=== PATIENT | male | born 1990 | race African-American/Black ===

== ENCOUNTER 2017-06-25 11:29 | Inpatient (IN) ==
[2017-06-25 12:02] LABS: URINE CULTURE NEEDED? NO; URINE MICRO REVIEW NEEDED? NO; URINE SOURCE CLEAN CATCH
[2017-06-25 12:02] LABS: MANUAL DIFF NEEDED? NO
[2017-06-25 12:06] LABS: BILIRUBIN URINE NEGATIVE (NEGATIVE); BLOOD URINE NEGATIVE (NEGATIVE); COLOR YELLOW; GLUCOSE URINE NEGATIVE (NEGATIVE); LEUKOCYTES URINE NEGATIVE (NEGATIVE); NITRITE URINE NEGATIVE (NEGATIVE); PROTEIN URINE NEGATIVE (NEGATIVE); SP GRAVITY URINE 1.021; TURBIDITY URINE CLEAR (CLEAR); UR EPITHELIAL CELLS <10 /HPF (<10); URINE BACTERIA NEGATIVE /HPF; URINE RBC <10 /HPF (<10); URINE WBC <10 /HPF (<10); UROBILINOGEN URINE 2 mg/dL (NORMAL)
[2017-06-25 12:06] LABS: BASO% 0.1 % (0.0-0.8); EOS# 0.01 X1000 (0.0-0.7); EOS% 0.1 % (0.0-10.0); HEMATOCRIT 41.5 % (42.0-52.0); HEMOGLOBIN 14.2 g/dL (14.0-18.0); LYMPH# 1.33 X1000 (1.2-3.4); LYMPH% 18.4 % (20.5-51.1); MCH 29.1 PG (27-31); MCHC 34.2 g/dL (33-37); MONO# 0.43 X1000 (0.11-0.59); MPV 10.3 FL (7.4-10.4); NEUT% 75.4 % (42.2-75.2); PLT 249 X1000 (130-400); RBC 4.88 XMIL (4.7-6.1)
[2017-06-25 12:26] LABS: AGAP 15; ALBUMIN 4.8 g/dL (3.5-5.0); ALKALINE PHOSPHATASE 70 U/L (32-122); AMYLASE 51 U/L (20-200); BUN 10 mg/dL (8-22); CHLORIDE 100 mmol/L (98-107); COSMO 275; GOT 18 U/L (10-34); GPT 21 U/L (10-44); LIPASE 20 U/L (13-60); POTASSIUM 4.1 mmol/L (3.5-5.1); SODIUM 138 mmol/L (136-145); TCO2 23 mmol/L (25-35); TOTAL PROTEIN 8.4 g/dL (6.3-8.3)
--- NOTE | 2017-06-25 12:54 | PROVIDER DOCUMENTATION ---
HPI-Abdominal Pain/GI Problem - General Chief Complaint: Abdominal Pain Stated Complaint: abd pain Time Seen by Provider: 06/25/17 12:38 Source: patient Allergies/Adverse Reactions: Patient Allergies Allergy/AdvReac Type Severity Reaction Status Date / Time No Known Allergies Allergy Verified 06/25/17 14:05 Home Medications: Home Medication List Medication Instructions Recorded Confirmed Last Taken Type NK [No Home Medications] 06/25/17 06/25/17 Unknown History - History of Present Illness-ABD Nature of Presenting Problems: 26 yo male presents to the emergency room with a chief complaint of abdominal pain with nausea that started last pm and vomiting started this morning. Reports was seen X 3 months ago for same. Reports a dull ache and states feels like a "bag of rocks in my stomach". Denies fever, diarrhea, dysuria or urine frequency. Abdominal Pain Onset Location: reports: periumbilical Pain Radiation: reports: no radiation Quality of Pain: reports: aching, dull Severity in ED: reports: moderate Onset/Duration: reports: last night Timing: reports: still present Modifying Factors: worse with: movement, vomiting Associated Symptoms: reports: nausea, vomiting Last BM: last night Dark Stools Present?: reports: none noticed Review of Systems - Adult - REVIEW OF SYSTEMS - ADULT Constitutional: reports: chills. denies: fever Gastrointestinal: reports: nausea, vomiting. denies: diarrhea Past History - Adult - PAST MEDICAL HISTORY-ADULT Review of Records: reports: Nursing Assessment Review, Medications Reviewed - PRIOR SURGERIES/PROCEDURES Surgical/Procedure History: reports: reviewed, not pertinent - IMMUNIZATION STATUS Childhood Immunizations: See Nurse Assessment Flu Vaccine: See Nurse Assessment - FAMILY HISTORY Family History: reviewed, not pertinent - SOCIAL HISTORY Smoking: cigarettes, less than 1 pack/day Provider spent 3-5 mins advising pt. on dangers of tobacco.: Discussed manners to quit use, and f/u contacts for add'l counseling. Physical Exam-General - PHYSICAL EXAM-ADULT Initial Vital Signs Reviewed: Yes - CONSTITUTIONAL General Appearance: appears well, alert, no apparent distress - EYES Eyes: PERRL/EOMI, pink conjunctivae - HEAD, EARS, NOSE, MOUTH & THROAT HENMT: normocephalic/atraumatic, moist mucous membranes, normal ENT inspection, TMs normal - NECK Neck: full range of motion, supple - RESPIRATORY Respiratory: lungs clear, normal breath sounds - CARDIOVASCULAR Cardiovascular: normal peripheral pulses, regular rate, rhythm - GASTROINTESTINAL (ABDOMEN) Abdominal Exam: soft, tenderness (superior umbilicous) - MUSCULOSKELETAL Back Exam: normal inspection, no vertebral tenderness Extremity: normal range of motion, normal capillary refill - SKIN Integumentary: normal color, normal turgor, warm/dry Progress - PLAN OF CARE/RESULTS Progress/Plan/Lab Results: Vital Signs - 8 hr 06/25/17 11:34 Temperature 97.7 F Pulse Rate 59 L Respiratory Rate 20 Blood Pressure 130/72 O2 Sat by Pulse Oximetry 100 Laboratory Results - last 24 hr 06/25/17 06/25/17 06/25/17 11:46 11:46 11:50 WBC 7.22 RBC 4.88 Hgb 14.2 Hct 41.5 L MCV 85.0 MCH 29.1 MCHC 34.2 RDW Std Deviation 13.3 Plt Count 249 MPV 10.3 Neut % (Auto) 75.4 H Lymph % (Auto) 18.4 L [place] % (Auto) 6.0 Eos % (Auto) 0.1 Baso % (Auto) 0.1 Neut # (Auto) 5.44 Lymph # (Auto) 1.33 [place] # (Auto) 0.43 Eos # (Auto) 0.01 Baso # (Auto) 0.01 Sodium 138 Potassium 4.1 Chloride 100 Carbon Dioxide 23 L Anion Gap 15 BUN 10 Creatinine 1.0 Estimated GFR/1.73 m2 > 60 BUN/Creatinine Ratio 10 Glucose 101 Calculated Osmolality 275 Calcium 10.0 Total Bilirubin 0.40 AST 18 ALT 21 Alkaline Phosphatase 70 Total Protein 8.4 H Albumin 4.8 Globulin 3.6 Albumin/Globulin Ratio 1.3 Amylase 51 Lipase 20 Urine Source CLEAN CATCH Urine Color YELLOW Urine Turbidity CLEAR Urine pH 7.0 Ur Specific Ira 1.021 Urine Protein NEGATIVE Ur Glucose (Stick) NEGATIVE Ur Ketones (Stick) NEGATIVE Urine Blood NEGATIVE Urine Nitrite NEGATIVE Urine Bilirubin NEGATIVE Urobilinogen Dipstick 2 A Urine Leukocytes NEGATIVE Urine WBC (Auto) <10 Urine RBC (Auto) <10 U Epithel Cells (Auto) <10 Urine Bacteria (Auto) NEGATIVE Orders Category Date Time Status Saline Loc DIRECTED Care 06/25/17 11:38 Active NPO Diet 06/25/17 11:38 Active AMYLASE [CHEM] Stat Lab 06/25/17 11:46 Completed CBC WITH ELECTRONIC DIFF [HEME] Stat Lab 06/25/17 11:46 Completed COMPREHENSIVE METABOLIC PANEL [CHEM] Stat Lab 06/25/17 11:46 Completed LIPASE [CHEM] Stat Lab 06/25/17 11:46 Completed URINALYSIS W/POSS RFLX CULT-1 [URINALYSIS] Stat Lab 06/25/17 11:50 Completed 1530: Discussed patient's CT Abd/Pelvis results with Dr. Polk. Result Diagrams: 06/25/17 11:46 06/25/17 11:46 - CONSULTS/PCP/HOSPITALIST Notification #1 *Consult/PCP/Hospitalist*: Danyell Time Discussed: 15:45 Reason/Comments: results of CT Abd/Pelvis r/o appendicitis Consult Disposition: Will see in ED Departure - Departure Date of Disposition Decision: 06/25/17 Time of Disposition Decision: 15:52 DIAGNOSIS: Appendicitis Qualifiers: Appendicitis type: acute appendicitis Acute appendicitis type: other Qualified Code(s): K35.89 - Other acute appendicitis Disposition: ADMITTED INPATIENT 09 Certified Medical Emergency: Emergent Condition: Stable - Critical Care Note This patient required my direct & personal management of CC.: No Attestation - Physician/ ABIDA Attestation Patient care was provided by Advanced Practice Provider:: Yes Advanced Practice Provider:: Carol Ann Fletcher Advanced Practice Provider documentation review:: The Mid-level provider documentation, treatment plan and medical decision making was reviewed by the physician who agrees with all treatment and medical decision making by the MLP. The physician spent face to face time with patient:: Yes Advanced Practice Provider documentation review:: Supervising physician onsite and consulted in the evaluation and care of this patient. The physician did have a face to face encounter with the patient.
--- NOTE | 2017-06-25 14:19 | Diag Imaging Result Doc PS360 ---
EXAM: CT ABD/PELVIS W/ IV CONT ONLY HISTORY: abdominal pain TECHNIQUE: CT abdomen and pelvis with intravenous contrast. Dose reduction protocol. COMPARISON: None. FINDINGS: There is a large calcified granuloma in the left lung base. No calcified gallstones or adjacent inflammation. Normal liver, spleen, pancreas, and adrenal glands. Normal enhancement of the kidneys. No hydronephrosis. Normal aorta. No bowel obstruction. Questionable fluid distended appendix measuring 8 mm. There are multiple small bowel loops filled with fluid in the lower abdomen and pelvis and this may simply be a small bowel loop. No inflammation in the right lower quadrant. No abscess. The urinary bladder is mildly distended. Normal prostate. IMPRESSION: Normal fluid-filled small bowel loop in the right lower quadrant versus mildly distended appendix. No abscess. Electronically signed by Bill Mascorro 06/25/2017 2:17 PM
[2017-06-25] MEDS ORDERED: ZOFRAN IV ONE (15:40)
[2017-06-25] MEDS ORDERED: MORPHINE IV ONE (15:50)
[2017-06-25] MEDS ORDERED: LR 1,000 ML ONE ×2 (16:25→18:33)
[2017-06-25] MEDS ORDERED: SENSORCAINE-MPF 0.5%/EPI 1:200,000 ONE (16:25)
[2017-06-25] MEDS ORDERED: DIPRIVAN 1% ONE (16:32)
[2017-06-25] MEDS ORDERED: XYLOCAINE-MPF 2% ONE (16:32)
[2017-06-25] MEDS ORDERED: QUELICIN (DOSE) ONE (16:32)
[2017-06-25] MEDS ORDERED: KEFZOL 1 GM/D5W 1 GM/50 ML IVPB ONE (17:02)
[2017-06-25] MEDS ORDERED: TORADOL ONE (17:14)
[2017-06-25] MEDS ORDERED: ZOFRAN ONE (17:14)
[2017-06-25] MEDS ORDERED: DECADRON ONE (17:14)
[2017-06-25] MEDS ORDERED: ZEMURON ONE (17:15)
[2017-06-25] MEDS ORDERED: FENTANYL ONE (17:16)
[2017-06-25] MEDS ORDERED: OFIRMEV 1000 MG/ISOTONIC SOLN 1,000 MG/100 ML BOTTLE ONE (17:17)
--- NOTE | 2017-06-25 17:20 | HISTORY AND PHYSICAL ---
DATE OF ADMISSION: 06/25/2017 Mr. Ava Cotton is a 26-year-old black male who presents to the emergency department with periumbilical pain and right lower quadrant pain. He states that he had pain similar to this several months ago but it resolved and now this pain was severe over the last 12 hours prompting him to present to the emergency department. He is healthy otherwise. PAST MEDICAL HISTORY: None. MEDICATIONS: None. ALLERGIES: None. SOCIAL HISTORY: He is between jobs. He did have family at the bedside. REVIEW OF SYSTEMS: A 14-point review of systems was performed and was essentially negative except for the history of present illness. FAMILY HISTORY: Noncontributory. PHYSICAL EXAMINATION: General: Mr. Ava Cotton is a healthy slim appearing 26-year-old black male in no acute distress. Hemodynamically satisfactory. Vital Signs: His temperature 98.4 degrees, heart rate is 68, blood pressure is 124/68, O2 saturation 98%. HEENT: He has no jaundice. No oral lesions. No cervical or supraclavicular lymphadenopathy. Heart: Has a regular rate. Lungs: Clear to auscultation and percussion bilaterally. Abdomen: Flat. It is tender at the periumbilical area and right lower quadrant. He has had no previous abdominal scars. No evidence of hernia. No costovertebral tenderness. Rectal Exam: Was not performed. Extremities: He does have palpable peripheral pulses. No peripheral edema. Neurological: He is alert and oriented x3 and appropriate. DIAGNOSTIC DATA: A CT scan of his abdomen and pelvis states that he has normal small bowel in this area or a dilated appendix and putting this together clinically he may have fluid-filled distended appendix. His white blood cell count is normal. Electrolytes are normal. IMPRESSION: Acute appendicitis. PLAN: Laparoscopic possible open appendectomy this evening. I have discussed the procedure in detail with the patient and his family at the bedside. Specifically the reasons for surgery and its risks. The risks we discussed was removal of a normal appendix, converting laparoscopic appendectomy to open appendectomy, injury to intra-abdominal contents or trocar placement, leakage from the appendiceal stump requiring reoperation for drainage of infection, ruptured appendix requiring prolonged hospitalization and possible an abdominal drain. He understands the need for surgery and its risks and he wants to proceed. cc: Renetta Child MD
[2017-06-25] MEDS ORDERED: NEOSTIGMINE ONE (17:28)
[2017-06-25] MEDS ORDERED: ROBINUL ONE (17:28)
--- NOTE | 2017-06-25 18:20 | OPERATIVE NOTE ---
PROCEDURE DATE: 06/25/2017 PREOPERATIVE DIAGNOSIS: Acute appendicitis. POSTOPERATIVE DIAGNOSIS: Acute appendicitis. PRINCIPAL PROCEDURE: Laparoscopic appendectomy. SURGEON: Renetta Child MD. ANESTHESIA: General in addition to local anesthetic. ESTIMATED BLOOD LOSS: 25 mL. DRAINS: None. INDICATIONS: Mr. Ava Cotton is a 26-year-old, black male, who presented to the emergency department with periumbilical and right lower quadrant pain. A CT scan was equivocal, but because of his clinical exam, we felt we should proceed with a laparoscopic appendectomy. FINDINGS: He had acute appendicitis without evidence of rupture. We felt we did the operation safely and no other intraabdominal pathology was noted. DESCRIPTION OF PROCEDURE: The patient was brought to the operating room, placed supine, received general anesthesia, was intubated. We did place a Santacruz catheter tube. His abdomen was prepped and draped within a sterile field. We began the procedure by making a small incision longitudinally above the umbilicus in the midline with a 15 blade scalpel. We placed a Veress needle and a pneumoperitoneum was established. The Veress needle was removed and we used step trocars. I placed an 11 mm step trocar through this incision into the abdomen. The camera was placed through this port, and the abdomen was explored for injury, there was none. Two other trocars were placed, again step trocars, under direct vision of the camera. I made a small transverse incision midline suprapubic area with a 15 blade scalpel and a 12 mm step trocar was placed through this incision and a 5 mm trocar was placed in the right lower quadrant of the abdomen. The camera was at the umbilical port. I used a grasper and dissector at our lower ports. We easily identified and mobilized the appendix. We used a gold load Endo-[id number] to come across the appendiceal mesentery. I used a reload of this stapler to come across the base of the appendix and then an Endo bag to remove the appendix through our 12 mm port site. I placed the port back through this incision and the area of operation was thoroughly inspected, irrigated, and the irrigation was removed with suction. We were happy with the appendiceal stump. There was no evidence of ongoing bleeding. We decided against leaving a drain. All trocars removed under direct vision of the camera. The pneumoperitoneum was allowed to dissipate. I used figure-of- eight 2-0 Vicryl stitches to reapproximate the fascia at all our trocar sites and then skin was closed with 4-0 Monocryl subcuticular stitches. Steri-Strips were applied. We will remove the Santacruz catheter tube. He will be hospitalized overnight. cc: Renetta Child MD
[2017-06-25] MEDS ORDERED: TYLENOL PO PRN (18:31)
[2017-06-25] MEDS ORDERED: SODIUM CHLORIDE 0.9% INJ PRN (18:32)
[2017-06-25] MEDS ORDERED: PHENERGAN IV PRN (18:32)
[2017-06-25] MEDS ORDERED: MORPHINE IV PRN (18:33)
[2017-06-25] MEDS: PERIDEX MT SCH ×2 (19:36→22:31)
[2017-06-25] MEDS: NORCO-7.5 PO PRN ×2 (19:36→23:53)
[2017-06-25] MEDS: LR 1,000 ML IV SCH (22:31)
[2017-06-26] MEDS: NORCO-7.5 PO PRN ×2 (07:43→11:52)
[2017-06-26] MEDS: PERIDEX MT SCH (09:31)
[2017-06-26] MEDS: LR 1,000 ML IV SCH (11:54)
[2017-06-26 15:40] VITALS: BP 124/68
== END 2017-06-26 16:05 | disposition home or self-care (01) ==
LOC: ED 11:29 → 4N 16:41 → ED 16:42 → OBSVTOIN 18:26
PROVIDERS: ADMIT Surgery; ATTEND Surgery